=== PATIENT | female | born 1935 | race Caucasian/White ===

== ENCOUNTER 2020-05-19 16:12 | Inpatient (IN) | payer OTHER ==
[~2020-05-19] VITALS: Ht 167.6 cm; Wt 77.6 kg
--- NOTE | 2020-05-19 19:06 | NUR ---
PATIENT ARRIVED AT 1840. ON HEPARIN GTT AT 14ML/HR. A/O X4. RA 97%. DENIES CHEST PAIN. DR CONDON NOTIFIED.
[2020-05-19] MEDS ORDERED: COZAAR 25 MG TA25 M1 (20:35)
[2020-05-19] MEDS ORDERED: CARVEDILOL12.5 MG PO (20:36)
[2020-05-19] MEDS ORDERED: LIPITOR 20 MG T20 M1 PO (20:37)
[2020-05-19] MEDS ORDERED: LEVETIRACETAM500 M1 PO (20:38)
[2020-05-19] MEDS ORDERED: LEVO-T200 MCG PO (20:39)
[2020-05-19] MEDS ORDERED: VYZULTA5 ML OPHTHALMIC (20:40)
[2020-05-19] MEDS ORDERED: PROAIR HFA8.5 GM INH (20:41)
[2020-05-19] MEDS ORDERED: ALPHAGAN P5 ML OPHTHALMIC (20:42)
[2020-05-19 21:03] LABS: HEMATOCRIT 41.4 % (37.0-47.0); HEMOGLOBIN 13.4 gm/dL (12.0-15.0); MCH 30.6 pg (26.0-34.0); MCHC 32.5 g/dL (28.0-37.0); MCV 94.3 fL (80.0-100.0); RBC 4.39 mil/uL (4.20-5.00); RDW 14.1 % (10.5-14.5); WBC 3.9 thou/uL (4.0-11.0)
[2020-05-19 21:17] LABS: INR 1.1; PROTIME 10.8 Seconds (9.3-11.4)
[2020-05-19 21:21] LABS: CALCIUM 8.6 mg/dL (8.5-10.1); CREATININE 1.2 mg/dL (0.6-1.0); POTASSIUM 3.9 mmol/L (3.5-5.1)
[2020-05-20 00:20] VITALS: BP 142/64
--- NOTE | 2020-05-20 00:34 | NUR ---
ADMISSION NOTE: PT ALERT AND ORIENTED X4. SHE IS CALM AND COOPERATIVE, A BIT ANXIOUS AND IS HAVING PAIN. ADMINISTERED, IV MORPHINE FOR 9/10 LOWER BACK PAIN. ULTRASOUND COMPLETED TONIGHT. HEPARIN GTT INFUSING.
--- NOTE | 2020-05-20 04:41 | NUR ---
continues on heparin gtt. continues to have intermttant pain in lower back. US of lower extremities completed tonight. one dose of morphine given tonight. with moderate effectiveness. careplan started.
[2020-05-20 06:18] VITALS: BP 145/78
[2020-05-20 07:28] VITALS: BP 168/89
--- NOTE | 2020-05-20 12:49 | NUR ---
INITIAL ASSESSMENT: Received consult. SW reviewed chart and spoke with nursing and attending physician. Pt was transferred to [facility] from [facility]. Pt with PE and is on heparin gtt. Pt placed in Enhanced Isolation due to COVID-19. Pt is afebrile and not requiring O2. Pt is on IV abx and IV steroids. SW spoke with pt via phone. Introduced role of SW. Pt is alert/orientated x 4. Pt reports she lives alone in a [facility]. Pt's apt is on the second floor. Building has elevator access. No stairs to navigate. Pt reports she has a cane and walker to use if needed. Pt has used [facility] in the past. No hx of post-acute placement. Pt's PCP is Dr. Lukas Lomeli. Pt's dtr is able to assist pt as needed. Plan is for pt to discharge home when medically stable. SW is following to assist as needed with discharge planning.
[2020-05-20 15:21] VITALS: BP 159/79
--- NOTE | 2020-05-20 19:16 | NUR ---
ASSUMED PATIENT CARE AT 0700. A/0 X4. ON RA. UP AD NUBIA. HEPRAIN GTT STOP AT 1830. PROGRESSING TOWARDS POC GOALS.
[2020-05-20 19:51] VITALS: BP 148/76
[2020-05-21 01:05] VITALS: BP 132/78
[2020-05-21 05:08] VITALS: BP 142/80
[2020-05-21 05:31] LABS: HEMATOCRIT 40.6 % (37.0-47.0); HEMOGLOBIN 13.1 gm/dL (12.0-15.0); MCH 30.4 pg (26.0-34.0); MCHC 32.4 g/dL (28.0-37.0); MCV 93.9 fL (80.0-100.0); RBC 4.32 mil/uL (4.20-5.00); RDW 14.1 % (10.5-14.5); WBC 6.9 thou/uL (4.0-11.0)
[2020-05-21 06:10] LABS: CALCIUM 9.2 mg/dL (8.5-10.1); CREATININE 1.2 mg/dL (0.6-1.0); POTASSIUM 4.2 mmol/L (3.5-5.1)
--- NOTE | 2020-05-21 07:03 | HC ---
[facility] [place] [address] CONSULTATION Name: MOIRA CORTES Room #: 361-P ADM IN M.R.#: [id number] Admission: 05/19/20 Attend Phys: Jv Ford MD Discharge: Date of : 37 Report #: [id number] THIS REPORT FOR: cc: Lukas Lomeli MD, David R. MD Barry, Joseph W. MD ~ DATE OF SERVICE: 05/20/2020 INFECTIOUS DISEASE CONSULTATION ATTENDING PHYSICIAN: Dr. Ford. REASON FOR EVALUATION: COVID-19 infection, complicated by pulmonary emboli. HISTORY OF PRESENT ILLNESS: ____ patient examined. This is an 84-year-old woman with fairly extensive medical history including hypertension, seizure disorder, had previous history of pulmonary emboli, this is postoperative related to a knee related surgery. She over the course of the last 1-2 weeks had signs and symptoms, primarily headache and dizziness, shortness of breath with progressive generalized weakness. She was evaluated at an outside hospital, was found to have COVID positivity on 05/19/2020. 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 Due to ____ concerns, she was transferred for ongoing treatment. At this point, she is on ambient air. She does have persistent headaches. She is mildly dyspneic at times. She has had a diminished appetite with poor p.o. intake. Denies significant GI related complaints. It is not clear if she had any fevers or chills. Was empirically started on combination therapy with ceftriaxone and azithromycin as well as methylprednisolone. ALLERGIES: LISTED TO IBUPROFEN. CURRENT MEDICATIONS: Include thiamine, famotidine, atorvastatin, cholecalciferol, losartan, azithromycin, ascorbic acid, carvedilol, levothyroxine, hydrocodone, methylprednisolone, ceftriaxone, levetiracetam, zinc, and heparin. Received ivermectin as well. PAST MEDICAL HISTORY: As described above with history of hypothyroidism, previous thymoma, history of TIA, Graves' disease, reflux, seizure disorder, previous stroke, and previous PE. SOCIAL HISTORY: Nonsmoker, no ethanol, no illicit drug use. FAMILY HISTORY: Noncontributory. [address] [address] CONSULTATION Name: MOIRA CORTES Room #: 361-P [facility] IN ..#: [id number] Admission: 05/19/20 Attend Phys: Jv Ford MD Discharge: Date of : 37 Report #: [id number] REVIEW OF SYSTEMS: Otherwise, unremarkable. PHYSICAL EXAMINATION: GENERAL: She appears relatively comfortable, mildly undernourished. She is lucid. VITAL SIGNS: Temperature 98.1, pulse 58, respirations 18, blood pressure 159/79. SKIN: Warm, dry, no rashes. HEENT: Normocephalic. Extraocular muscles intact. NECK: Supple. LUNGS: Diminished, otherwise clear breath sounds. HEART: Regular. I do not appreciate murmur. ABDOMEN: Soft, mildly distended. There are no peritoneal signs. GENITOURINARY: Deferred. RECTAL: Deferred. LABORATORY DATA: CBC: White count 3.9, H and H of 13.4 and 41.4 and platelets of 214. Electrolytes: Sodium 139, potassium 3.9, chloride 101, bicarbonate is 28, anion gap of 10, BUN and creatinine of 15 and 1.2, glucose of 97. Estimated GFR 43. Procalcitonin less than 0.05. Sed rate of 14. Ferritin 311. TSH of 0.254. Troponin 0.12. Venous Doppler of lower extremity showed no evidence of DVT. ASSESSMENT: COVID-19 infection, complicated by pulmonary emboli. We will continue directed therapy. We will add ivermectin and vitamins. We will repeat chest x-ray if evidence of pneumonitis or any change in her overall pulmonary status such as requiring supplemental oxygen, and we will likely start remdesivir as well. She is on corticosteroids and empiric therapy for bacterial etiology. We will continue those. She is on anticoagulation as well. At this point, she is not overtly toxic. Continue to monitor closely. She is certainly at risk for deterioration in her overall status. We will add incentive spirometry as well. <ELECTRONICALLY SIGNED> By: Pb Chaudhary MD 05/21/20 [id number] Pb Chaudhary MD /nt
[2020-05-21 07:45] VITALS: BP 164/75
[2020-05-21 12:01] LABS: ALBUMIN 3.3 g/dL (3.4-5.0); DIRECT BILIRUBIN < 0.1 mg/dL (<0.1-0.2); SGOT 34 U/L (15-37); SGPT 27 U/L (14-59); TOTAL BILIRUBIN 0.2 mg/dL (0.2-1.0); TOTAL PROTEIN 6.9 g/dL (6.4-8.2)
--- NOTE | 2020-05-21 13:27 | NUR ---
SW reviewed chart and spoke with nursing and attending physician. Pt remains in Enhanced Isolation due to COVID-19. Pt is afebrile and not requiring O2. Pt is on IV abx and IV steroids. Pt is completing course of Ivermectin. Discharge home is anticipated for tomorrow. PT/OT have evaluated pt and have discharged pt from their service. SW spoke with pt via phone to discuss discharge plan. Pt is aware and in agreement with discharge plan. SW discussed services. Pt declines stating that her daughter can assist her as needed. Pt's family will provide transportation home when discharged. No SW needs identified at this time, but is available to assist should needs arise.
[2020-05-21 15:50] VITALS: BP 132/56
--- NOTE | 2020-05-21 18:00 | NUR ---
ASSUMED PATIENT CARE AT 0700. A/O X4. RA, UP AD NUBIA. VSS AFEBRILE. SLOWLY TOWARDS POC GOALS.
[2020-05-21 21:03] VITALS: BP 135/61
[2020-05-22 04:40] VITALS: BP 136/64
--- NOTE | 2020-05-22 05:01 | NUR ---
ASSUMED CARE OF PT AT 1900HRS. PT AOX4 AND LETS NEEDS BE KNOWN. PT IS UP AD NUBIA. PT COMPLAINED OF SOME HEADACHE AND PRN MED PROVIDED. PT DENIES NAUSEA OR SOA. PT RUNS SR/SB ON TELE. ABX TREATMENT CONTINUED. PT WAS ABLE TO GET COMFORTABLE AND SLEEP PART OF THE SHIFT. WILL CONTINUE TO MONITOR.
[2020-05-22 05:35] LABS: HEMOGLOBIN 13.5 gm/dL (12.0-15.0); MCH 30.3 pg (26.0-34.0); MCHC 32.2 g/dL (28.0-37.0); MCV 94.2 fL (80.0-100.0); RBC 4.46 mil/uL (4.20-5.00); RDW 14.7 % (10.5-14.5); WBC 10.5 thou/uL (4.0-11.0)
[2020-05-22 05:51] LABS: ALBUMIN 3.2 g/dL (3.4-5.0); ANION GAP 12 mmol/L (7-16); BUN 27 mg/dL (7-18); CALCIUM 9.1 mg/dL (8.5-10.1); CHLORIDE 103 mmol/L (98-107); CO2 26 mmol/L (21-32); CREATININE 1.3 mg/dL (0.6-1.0); DIRECT BILIRUBIN < 0.1 mg/dL (<0.1-0.2); GLUCOSE 139 mg/dL (74-106); PHOSPHORUS 3.8 mg/dL (2.5-4.9); POTASSIUM 4.4 mmol/L (3.5-5.1); SGOT 26 U/L (15-37); SGPT 27 U/L (30-65); SODIUM 141 mmol/L (136-145); TOTAL BILIRUBIN 0.2 mg/dL (0.2-1.0); TOTAL PROTEIN 6.8 g/dL (6.4-8.2)
[2020-05-22 08:08] VITALS: BP 144/74
[2020-05-22 15:27] VITALS: BP 161/77
--- NOTE | 2020-05-22 18:27 | NUR ---
progressing towards poc goals. ra. ambulated in room.
[2020-05-22 19:40] VITALS: BP 159/94
[2020-05-23 04:28] VITALS: BP 145/67
--- NOTE | 2020-05-23 04:48 | NUR ---
PT AMBULATING TO BATHROOM INDEPENDENTLY AND IS TOLERATING WELL. LORTAB PROVIDING HEADACHE RELIEF. RESTING COMFORTABLY. NO NEEDS VOICED. CALL LIGHT WITHIN REACH. FREQUENT OBSERVATION.
[2020-05-23 05:52] LABS: ALBUMIN 3.2 g/dL (3.4-5.0); ANION GAP 6 mmol/L (7-16); BUN 24 mg/dL (7-18); CALCIUM 9.1 mg/dL (8.5-10.1); CHLORIDE 104 mmol/L (98-107); CO2 28 mmol/L (21-32); CREATININE 1.1 mg/dL (0.6-1.0); DIRECT BILIRUBIN < 0.1 mg/dL (<0.1-0.2); GLUCOSE 143 mg/dL (74-106); PHOSPHORUS 2.9 mg/dL (2.6-4.7); SGOT 25 U/L (15-37); SGPT 29 U/L (14-59); SODIUM 138 mmol/L (136-145); TOTAL BILIRUBIN 0.2 mg/dL (0.2-1.0); TOTAL PROTEIN 6.7 g/dL (6.4-8.2)
[2020-05-23 07:32] VITALS: BP 186/94
[2020-05-23 15:49] VITALS: BP 165/81
--- NOTE | 2020-05-23 17:18 | NUR ---
patient nausea in am. no disdress noted. ra. up ad rose mary.progressing towards poc goals.
[2020-05-23 20:09] VITALS: BP 146/77
--- NOTE | 2020-05-24 02:39 | NUR ---
PT AMBULATING TO BATHROOM INDEPENDNETLY AND IS TOLERATING WELL. DENIES NEED FOR PAIN MEDICATION. RESTING COMFORTABLY. NO NEEDS VOICED. CALL LIGHT WITHIN REACH. FREQUENT OBSERVATION.
[2020-05-24 03:24] VITALS: BP 136/80
[2020-05-24 05:37] LABS: ALBUMIN 2.8 g/dL (3.4-5.0); ANION GAP 9 mmol/L (7-16); BUN 25 mg/dL (7-18); CALCIUM 8.5 mg/dL (8.5-10.1); CHLORIDE 105 mmol/L (98-107); CO2 30 mmol/L (21-32); CREATININE 1.3 mg/dL (0.6-1.0); DIRECT BILIRUBIN < 0.1 mg/dL (<0.1-0.2); GLUCOSE 107 mg/dL (74-106); PHOSPHORUS 3.1 mg/dL (2.5-4.9); SGOT 25 U/L (15-37); SGPT 32 U/L (30-65); SODIUM 144 mmol/L (136-145); TOTAL BILIRUBIN 0.2 mg/dL (0.2-1.0); TOTAL PROTEIN 5.9 g/dL (6.4-8.2)
[2020-05-24 07:41] VITALS: BP 157/74
[2020-05-24 11:23] VITALS: BP 129/65
[2020-05-24] MEDS ORDERED: VITAMIN D325 MC1 PO (11:46)
[2020-05-24] MEDS ORDERED: NORVASC5 MG PO (11:46)
[2020-05-24] MEDS ORDERED: COREG6.25 MG PO (11:46)
[2020-05-24] MEDS ORDERED: CEFDINIR300 MG PO (11:46)
[2020-05-24] MEDS ORDERED: PEPCID20 MG PO (11:46)
[2020-05-24] MEDS ORDERED: VITAMINC500 PO (11:46)
[2020-05-24] MEDS ORDERED: XARELTO20 MG PO (11:46)
[2020-05-24] MEDS ORDERED: PREDNISONE 20 M20 M1 PO (11:46)
[2020-05-24] MEDS ORDERED: XARELTO15 MG PO (11:46)
[2020-05-24 12:29] VITALS: BP 129/65
[2020-05-24 13:40] VITALS: BP 129/65
--- NOTE | 2020-05-24 15:59 | NUR ---
PT DISCHARGED TO HOME AND GIVEN INSTRUCTIONS TO SELF ISOLATE THRU JUN 02. FOLLOW UP APPOINTMENTS WITH DR BAILEY AND PCP..RX SENT TO PHARMACY.
--- NOTE | 2020-05-24 16:04 | NUR ---
DISCHARGE NOTE: SW reviewed chart and spoke with nursing and attending physician. Pt remains in Enhanced Isolation due to COVID-19. Pt is medically stable for discharge home today. Pt's family to provide transportation home. No SW discharge needs identified at this time, but is available to assist should needs arise.
== END 2020-05-24 15:28 | disposition home or self-care (01) | DRG 177 ==
LOC: ADMC 16:12 → PRE 16:27 → 3W 18:51
PROVIDERS: Internal Medicine Pulmonary Disease; Nurse Practitioner Family; Specialist; ADMIT Hospitalist; ATTEND Hospitalist
PROC: XW033E5 Introduction of Remdesivir Anti-infective into Peripheral Vein, Percutaneous Approach, New Technology Group 5 (ICD-10-PCS; principal; 2020-05-21)
DX: U07.1 COVID-19 (principal); J12.82 Pneumonia due to coronavirus disease 2019; I26.99 Other pulmonary embolism without acute cor pulmonale; N17.9 Acute kidney failure, unspecified; I10 Essential (primary) hypertension; E78.5 Hyperlipidemia, unspecified; E03.9 Hypothyroidism, unspecified; G40.909 Epilepsy, unspecified, not intractable, without status epilepticus; E05.00 Thyrotoxicosis with diffuse goiter without thyrotoxic crisis or storm; K21.9 Gastro-esophageal reflux disease without esophagitis; K58.9 Irritable bowel syndrome, unspecified; Z79.899 Other long term (current) drug therapy; Z86.73 Personal history of transient ischemic attack (TIA), and cerebral infarction without residual deficits; Z86.711 Personal history of pulmonary embolism; Z90.49 Acquired absence of other specified parts of digestive tract; Z72.89 Other problems related to lifestyle
CPT/HCPCS: 10879